=== PATIENT | female | born 1975 | race Asian ===

== ENCOUNTER 2016-11-01 20:09 | Emergency (ER) | payer BC ==
[~2016-11-01] VITALS: Ht 157.5 cm; Wt 64.9 kg
[2016-11-01 20:10] VITALS: BP_SYST 117
[2016-11-01 20:50] VITALS: BP_SYST 120
== END 2016-11-01 20:50 | disposition home or self-care (01) ==
LOC: SED 20:09
DX: F41.9 Anxiety disorder, unspecified (principal); R06.4 Hyperventilation
CPT/HCPCS: 99283